=== PATIENT | female | born 1995 | race Caucasian/White ===

== ENCOUNTER 2021-02-21 22:30 | Inpatient (IN) | payer OTHER ==
[~2021-02-21] VITALS: Ht 162.6 cm; Wt 83.9 kg
[2021-02-21 22:05] LABS: HEMOGLOBIN 9.8 gm/dl (12.3-15.3); RED BLOOD COUNT 3.56 M/UL (4.00-5.10); WHITE BLOOD COUNT 11.6 K/UL (4.5-11.0)
[2021-02-22] MEDS ORDERED: DOCUSATE SODIU100 MG PO (01:49)
[2021-02-22] MEDS ORDERED: IBUPROFEN600 MG PO (01:49)
[2021-02-23 06:54] LABS: HEMOGLOBIN 8.2 gm/dl (12.3-15.3)
[2021-02-23] MEDS ORDERED: FERROUS SULFAT325 M2 PO (10:20)
== END 2021-02-23 16:36 | disposition home or self-care (01) | DRG 806 ==
LOC: GENOP 22:30 → OB 22:32
PROVIDERS: ADMIT Obstetrics & Gynecology
PROC: 4A1HXCZ Monitoring of Products of Conception, Cardiac Rate, External Approach (ICD-10-PCS; 2021-02-21)
PROC: 10E0XZZ Delivery of Products of Conception, External Approach (ICD-10-PCS; principal; 2021-02-22)
PROC: 10907ZC Drainage of Amniotic Fluid, Therapeutic from Products of Conception, Via Natural or Artificial Opening (ICD-10-PCS; 2021-02-22)
PROC: 0HQ9XZZ Repair Perineum Skin, External Approach (ICD-10-PCS; 2021-02-22)
DX: O36.63X0 Maternal care for excessive fetal growth, third trimester, not applicable or unspecified (principal); N13.30 Unspecified hydronephrosis; Z37.0 Single live birth; O99.892 Other specified diseases and conditions complicating childbirth; Z20.822 Contact with and (suspected) exposure to COVID-19; O42.92 Full-term premature rupture of membranes, unspecified as to length of time between rupture and onset of labor; Z3A.38 38 weeks gestation of pregnancy; O70.0 First degree perineal laceration during delivery
CPT/HCPCS: 36415; 51702; 81001; 82800; 83518; 85014; 85018; 85025; 87210; 87661; 90715; 96372; J2590; J2795; J7120; U0002